=== PATIENT | male | born 1995 | race Caucasian/White ===

== ENCOUNTER 2016-06-05 18:13 | Emergency (ER) | payer OTHER ==
[~2016-06-05] VITALS: Ht 170.2 cm; Wt 68.0 kg
--- NOTE | 2016-06-05 19:45 | REP ---
Clinical: Trauma . Technique: Internal rotation, external rotation, and Y view left shoulder . Findings: No acute fracture or dislocation. The acromioclavicular and glenohumeral joints are intact. No periarticular calcifications or degenerative changes are appreciated. Sub acromial space is normal. Surrounding soft tissues are unremarkable. Impression: Normal left shoulder radiographs. No acute fracture or dislocation. Signed by Thor Rueda MD 06/05/2016 07:36 P
[2016-06-05] MEDS ORDERED: CYCLOBENZAPRINE 5MG TABLET PO ONE (21:45)
[2016-06-05] MEDS ORDERED: IBUPROFEN 600 MG TAB PO ONE (21:45)
[2016-06-05] MEDS ORDERED: PERCOCET 5MG/325MG TAB PO ONE (21:45)
[2016-06-05] MEDS ORDERED: CYCLOBENZAPRINE 10 MG TAB PO ONE (21:45)
[2016-06-05] MEDS ORDERED: NORCO 5/325MG TABLET (BULK FOR ED) PO ONE (22:00)
[2016-06-05 22:08] VITALS: BP 143/69
== END 2016-06-05 22:13 | disposition home or self-care (01) ==
LOC: M ED 19:40
DX: M25.512 Pain in left shoulder (principal)

== ENCOUNTER 2017-01-04 13:24 | Emergency (ER) | payer OTHER ==
[~2017-01-04] VITALS: Ht 170.2 cm; Wt 70.5 kg
[2017-01-04 13:24] VITALS: BP 169/89
[2017-01-04] MEDS ORDERED: IBUP1TAB7 PO (13:30)
[2017-01-04] MEDS ORDERED: IBUP1TAB6 PO (13:56)
[2017-01-04] MEDS ORDERED: AMOX875T PO (13:56)
[2017-01-04] MEDS ORDERED: NORCOTAB PO (13:56)
[2017-01-04] MEDS ORDERED: AMOXICILLIN 500 MG CAP PO ONE (14:00)
== END 2017-01-04 14:15 | disposition home or self-care (01) ==
LOC: M ED 13:24
DX: K08.89 Other specified disorders of teeth and supporting structures (principal); F17.210 Nicotine dependence, cigarettes, uncomplicated

== ENCOUNTER 2018-11-24 08:15 | Emergency (ER) | payer OTHER ==
[~2018-11-24] VITALS: Ht 170.2 cm; Wt 72.7 kg
[2018-11-24 08:15] VITALS: BP 144/89
[~2018-11-24 08:15] MED LIST: AMOX875T PO; HYDR-3715 PO; IBUP1TAB6 PO; IBUP1TAB7 PO
[2018-11-24] MEDS ORDERED: psoriasis cream (08:20)
--- NOTE | 2018-11-24 09:02 | REP ---
Right foot four views : There is no fracture or dislocation. Mineralization and joint spaces are normal. There are no calcifications or foreign bodies. Impression: Negative right foot. Left foot four views : There is no fracture or dislocation. Mineralization and joint spaces are normal. There are no calcifications or foreign bodies. Impression: Negative left foot . Electronically Signed by Joe Ruelas MD 11/24/2018 08:53 A
== END 2018-11-24 09:08 | disposition home or self-care (01) ==
LOC: M ED 08:15
DX: M72.2 Plantar fascial fibromatosis (principal); F17.290 Nicotine dependence, other tobacco product, uncomplicated; L40.9 Psoriasis, unspecified; Z79.899 Other long term (current) drug therapy